=== PATIENT | male | born 1995 | race Caucasian/White ===

== ENCOUNTER 2018-09-23 17:30 | Emergency (ER) | payer OTHER ==
[2018-09-23] MEDS ORDERED: Acetaminophen 500 MG TAB ONE (17:48)
--- NOTE | 2018-09-23 18:10 | CT ---
CT Brain WO Con History: Closed head injury Comparison: None. Findings: No acute hemorrhage or infarct. No midline shift or mass effect. Ventricular size and extra -axial CSF spaces are normal. Calvarium is intact. Paranasal sinuses and mastoids are clear. Impression: No acute intracranial abnormality.
[2018-09-23] MEDS ORDERED: Ketorolac Tromethamine 60 MG/2 ML VIAL ONE (18:13)
== END 2018-09-23 18:28 | disposition home or self-care (01) ==
LOC: SCSER 17:30
DX: S09.90XA Unspecified injury of head, initial encounter (principal); F17.290 Nicotine dependence, other tobacco product, uncomplicated; W22.8XXA Striking against or struck by other objects, initial encounter
CPT/HCPCS: 70450; 96372; J1885